=== PATIENT | female | born 1980 | race Caucasian/White ===

== ENCOUNTER → 2019-03-13 01:00 | Outpatient (BNVA) | payer MEDICARE, SELFPAY | PROVIDERS: Family Provider Nurse Practitioner Family; PCP Nurse Practitioner Family; Visit Provider Nurse Practitioner Family | DX: J40 Bronchitis, not specified as acute or chronic (principal); R35.0 Frequency of micturition; B37.3 Candidiasis of vulva and vagina; E66.01 Morbid (severe) obesity due to excess calories; Z68.43 Body mass index [BMI] 50.0-59.9, adult | CPT/HCPCS: 81001; 87086 ==

== ENCOUNTER → 2019-04-05 13:13 | Outpatient (BNVA) | payer MEDICARE, SELFPAY | PROVIDERS: Family Provider Nurse Practitioner Family; PCP Nurse Practitioner Family; Visit Provider Internal Medicine Rheumatology | DX: M35.9 Systemic involvement of connective tissue, unspecified (principal); E61.1 Iron deficiency; M15.9 Polyosteoarthritis, unspecified; Z79.899 Other long term (current) drug therapy | CPT/HCPCS: 99214 ==

== ENCOUNTER → 2019-05-10 11:06 | Outpatient (BNVA) | payer MEDICARE, SELFPAY | PROVIDERS: Family Provider Nurse Practitioner Family; PCP Nurse Practitioner Family; Visit Provider Nurse Practitioner Family | DX: K21.9 Gastro-esophageal reflux disease without esophagitis (principal) | CPT/HCPCS: 87338 ==

== ENCOUNTER → 2019-06-15 13:43 | Outpatient (BNVA) | payer MEDICARE, SELFPAY | PROVIDERS: Family Provider Nurse Practitioner Family; PCP Nurse Practitioner Family; Visit Provider Nurse Practitioner Family | DX: N39.0 Urinary tract infection, site not specified (principal); E11.9 Type 2 diabetes mellitus without complications; E03.9 Hypothyroidism, unspecified; N20.0 Calculus of kidney; E55.9 Vitamin D deficiency, unspecified; E78.2 Mixed hyperlipidemia; D64.9 Anemia, unspecified | CPT/HCPCS: 74018; 80053; 80061; 82306; 82607; 83036; 83540; 83921; 84443; 85025 ==

== ENCOUNTER → 2019-06-22 00:01 | Outpatient (BNVA) | payer MEDICARE, SELFPAY | PROVIDERS: Family Provider Nurse Practitioner Family; PCP Nurse Practitioner Family; Visit Provider Nurse Practitioner Family | DX: M35.9 Systemic involvement of connective tissue, unspecified (principal); E55.9 Vitamin D deficiency, unspecified; E78.2 Mixed hyperlipidemia; N39.0 Urinary tract infection, site not specified; M54.9 Dorsalgia, unspecified | CPT/HCPCS: 85651; G0328 ==

== ENCOUNTER → 2019-06-26 15:55 | Outpatient (BNVA) | payer MEDICARE, SELFPAY | PROVIDERS: Family Provider Nurse Practitioner Family; PCP Nurse Practitioner Family; Visit Provider Nurse Practitioner Family | DX: N39.0 Urinary tract infection, site not specified (principal); D64.9 Anemia, unspecified; D72.819 Decreased white blood cell count, unspecified | CPT/HCPCS: 81003; 82607; 82746; 85025 ==

== ENCOUNTER 2019-07-05 12:05 | Outpatient (CLI) | payer MEDICARE, SELFPAY ==
--- NOTE | 2019-07-05 12:16 | XR_ITS ---
WS: [id number] XR lumbar spine 2-3V* [id number] REASON FOR EXAM: lumbar pain radiating to right hip and leg FINDINGS: Degenerate disc changes L5-S1. The remaining lumbar spine showed normal vertebral body heights and the disc spaces were normal. There is 5 functional lumbar vertebra. XR/XR lumbar spine 2-3V* [id number] IMPRESSION: Degenerated disc changes L5-S1.
--- NOTE | 2019-07-05 12:16 | XR_ITS ---
WS: [id number] XR hip RT 2-3V wo/w pel* [id number] REASON FOR EXAM: right hip pain FINDINGS: Multiple views of the right hip show normal appearance of the acetabulum. There is no fractures of the head of the femur neck are intertrochanteric area. The left pelvis was normal as well as the right pelvis. XR/XR hip RT 2-3V wo/w pel* [id number] IMPRESSION: Negative right hip.
== END 2019-07-05 12:06 | disposition home or self-care (01) ==
LOC: RAD 12:09
PROVIDERS: Family Provider Nurse Practitioner Family; PCP Nurse Practitioner Family; Visit Provider Nurse Practitioner Family
DX: M54.5 Low back pain (principal); M25.551 Pain in right hip; N39.0 Urinary tract infection, site not specified
CPT/HCPCS: 72100; 73502; 80053; 81001

== ENCOUNTER → 2019-08-23 10:05 | Outpatient (BNVA) | payer MEDICARE, SELFPAY | PROVIDERS: Family Provider Nurse Practitioner Family; PCP Nurse Practitioner Family; Visit Provider Nurse Practitioner Family | DX: E03.9 Hypothyroidism, unspecified (principal); M32.9 Systemic lupus erythematosus, unspecified; L65.9 Nonscarring hair loss, unspecified | CPT/HCPCS: 36415; 82728; 83540; 84439; 84443; 84481; 85025 ==

== ENCOUNTER → 2019-09-13 11:27 | Outpatient (BNVA) | payer MEDICARE, SELFPAY | PROVIDERS: Family Provider Nurse Practitioner Family; PCP Nurse Practitioner Family; Visit Provider Internal Medicine Rheumatology | DX: E55.9 Vitamin D deficiency, unspecified (principal); M35.9 Systemic involvement of connective tissue, unspecified | CPT/HCPCS: 36415; 80053; 82306; 85651; 86140 ==

== ENCOUNTER → 2019-11-01 10:29 | Outpatient (BNVA) | payer MEDICARE, SELFPAY | PROVIDERS: Family Provider Nurse Practitioner Family; PCP Nurse Practitioner Family; Visit Provider Nurse Practitioner Family | DX: E03.9 Hypothyroidism, unspecified (principal); E55.9 Vitamin D deficiency, unspecified; E11.9 Type 2 diabetes mellitus without complications; D50.9 Iron deficiency anemia, unspecified; E78.2 Mixed hyperlipidemia | CPT/HCPCS: 80053; 80061; 81003; 82306; 82607; 83036; 83540; 84439; 84443; 84481; 85007; 85027; 86038 ==

== ENCOUNTER → 2019-11-10 11:52 | Outpatient (BNVA) | payer MEDICARE, SELFPAY | PROVIDERS: Family Provider Nurse Practitioner Family; PCP Nurse Practitioner Family; Visit Provider Nurse Practitioner Family | DX: E11.9 Type 2 diabetes mellitus without complications (principal); N39.0 Urinary tract infection, site not specified | CPT/HCPCS: 81003 ==

== ENCOUNTER → 2019-11-27 08:24 | Outpatient (BNVA) | payer MEDICARE, SELFPAY | PROVIDERS: Family Provider Nurse Practitioner Family; PCP Nurse Practitioner Family; Visit Provider Nurse Practitioner Family | DX: Z11.59 Encounter for screening for other viral diseases (principal) | CPT/HCPCS: 87635 ==

== ENCOUNTER 2020-01-09 11:18 | Outpatient (CLI) | payer MEDICARE, SELFPAY ==
--- NOTE | 2020-01-09 11:35 | XR_ITS ---
WS: [id number] Lumbar spine, 3 views, 01/09/2020 Clinical Data: CHRONIC BACK PAIN, DORSALGIA Comparison: Lumbar spine, 07/05/2019. Findings: No compression fractures or subluxation is seen. There is narrowing of the L5-S1 disc space.. The tra nsverse processes and SI joints are normal. Minimal anterior osteoarthritic spurring is seen involving the lumbar vertebral bodies. XR/XR lumbar spine 2-3V* [id number] Impression: 1. Mild osteoarthritis. 2. Minimal L5-S1 disc space narrowing.
--- NOTE | 2020-01-09 11:35 | XR_ITS ---
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 Findings: No compression fractures are seen. The disc heights are normal. There is osteoarthritic spurring of the T6-T10 thoracic vertebral bodies. The paravertebral regions a re unremarkable. XR/XR thoracic spine 2V 47720 Impression: Moderate osteoarthritis.
== END 2020-01-09 11:19 | disposition home or self-care (01) ==
PROVIDERS: PCP Nurse Practitioner Family; Visit Provider Internal Medicine Rheumatology
DX: G89.29 Other chronic pain (principal); M47.814 Spondylosis without myelopathy or radiculopathy, thoracic region; M47.816 Spondylosis without myelopathy or radiculopathy, lumbar region
CPT/HCPCS: 72070; 72100

== ENCOUNTER 2020-01-29 06:00 | Outpatient (RCR) | payer MEDICARE, SELFPAY | END 2020-01-29 23:59 | disposition home or self-care (01) | LOC: WPT 06:00 | PROVIDERS: PCP Nurse Practitioner Family; Referring Provider Internal Medicine Rheumatology; Visit Provider Internal Medicine Rheumatology | DX: M51.36 Other intervertebral disc degeneration, lumbar region (principal) | CPT/HCPCS: 97110; 97162 ==

== ENCOUNTER → 2020-03-04 14:16 | Outpatient (BNVA) | payer MEDICARE, SELFPAY | PROVIDERS: PCP Nurse Practitioner Family; Visit Provider Nurse Practitioner Family | DX: D50.9 Iron deficiency anemia, unspecified (principal); M32.9 Systemic lupus erythematosus, unspecified; E03.9 Hypothyroidism, unspecified; N92.0 Excessive and frequent menstruation with regular cycle; J01.40 Acute pansinusitis, unspecified; H60.90 Unspecified otitis externa, unspecified ear | CPT/HCPCS: 80053; 81003; 82607; 82728; 83550; 83735; 84425; 84443; 85025; 86038 ==

== ENCOUNTER 2020-04-18 02:14 | Emergency (ER) | payer MEDICARE, SELFPAY ==
[2020-04-18 02:19] VITALS: BP 111/73; PULSE 74; RESP 18; TEMP 36.4; O2SAT 100; BMI 37.0
--- NOTE | 2020-04-18 02:22 | CTR_ITS ---
PROCEDURE INFORMATION: Exam: CT Abdomen And Pelvis With Contrast Exam date and time: 04/18/2020 2:24 AM Age: 39 years old Clinical indication: Abdominal pain; Localized; Right upper quadrant (ruq); Prior surgery; Surgery type: Gastric sleeve. Appy. Tubal. ; Patient HX: Ruq pain; Additional info: Abd pain TECHNIQUE: Imaging protocol: Computed tomography of the abdomen and pelvis with contrast. Radiation optimization: All CT scans at this facility use at least one of these dose optimization techniques: automated exposure control; mA and/or kV adjustment per patient size (includes targeted exams where dose is matched to clinical indication); or iterative reconstruction. Contrast material: OMNI 300; Contrast volume: 95 ml; Contrast route: INTRAVENOUS (IV); COMPARISON: No relevant prior studies available. RADIATION DOSE METRICS: Total DLP (mGy-cm): 1599.2 FINDINGS: Lungs: The lung bases are clear. Mediastinal space: Very small hiatal hernia. Liver: Unremarkable. Gallbladder and bile ducts: No visible gallstones by CT. Ultrasound would be more sensitive for detecting gallstones, if clinically needed. The gallbladder appears upper normal in size. No pericholecystic inflammatory changes or fluid. No biliary tree dilation. Pancreas: Unremarkable. Spleen: Unremarkable. Adrenal glands: Unremarkable. Kidneys and ureters: Likely benign 12 mm cyst in the right kidney. No hydronephrosis of either kidney. No visible ureteral calculus. Stomach and bowel: Evidence for prior gastric surgery. There are no CT findings to strongly suggest diverticulitis. Appendix: Reportedly, there has been prior appendectomy. Intraperitoneal space: No free air, generalized ascites, or bowel distention. Vasculature: No evidence for abdominal aortic aneurysm. Lymph nodes: No retroperitoneal adenopathy. Urinary bladder: Unremarkable as visualized. Reproductive: The left ovary contains a 15 mm dominant follicle versus very small cyst. Significance uncertain/unlikely due to small size. Small amount of cul-de-sac fluid. Bones/joints: Moderate to severe degenerative disc changes at L5-S1. Soft tissues: No significant acute finding. CT/CT abdomen pelvis w con* [id number] IMPRESSION: 1. No free air or bowel distention. 2. Gallbladder appears upper normal in size. No visible gallstones by CT. 3. The left ovary contains a 15 mm dominant follicle versus very small cyst. Significance uncertain/unlikely due to small size. Small amount of cul-de-sac fluid. 4. Other findings discussed above. COMMENTS: Consistent with the [employer]'s Incidental Findings Committee white paper (J Am Flavio Radiol 2018): Any incidental renal lesion less than 1 cm or classified as too small to characterize, or any incidental cystic renal lesion characterized as simple-appearing, is likely benign. No follow-up imaging is recommended for these lesions per consensus recommendations based on imaging criteria. Radiation Dose CTDIVOL = (mGy): DLP = 1599.2 (mGy-cm)
--- NOTE | 2020-04-18 02:23 | ECG_ITS ---
[facility] Test Date: 2020-04-18 Pat Name: Sylvia Luong Department: Room: Gender: Female Retail Assistant Store Manager: : 1980 Requested By: Narinder Pena Order Number: [id number] Reading MD: KODY GUY Measurements Intervals [place] Rate: 66 P: -1 WA: 143 QRS: 34 QRSD: 97 T: 25 QT: 400 QTc: 420 Interpretive Statements SINUS RHYTHM No previous ECG available for comparison Electronically Signed On 04-18-2020 18:18:18 FRUIT HARVEST WORKER by KODY GUY [id number]
--- NOTE | 2020-04-18 02:24 | ED_ITS ---
HPI - Abdominal Pain General: Chief Complaint: Abdominal Pain Stated Complaint: abd pain Time Seen by Provider: 04/18/20 02:19 Source: patient and EMS Mode of arrival: EMS Limitations: no limitations History of Present Illness: HPI narrative: 39-year-old female has a history of chronic back pain and also had a gastric sleeve procedure done last year. She states she had eaten something today and started having severe abdominal pain that radiated up her chest. States she felt like she was going to vomit as well. Patient called EMS and states she was given fentanyl along with Zofran and she feels much improved currently. She states she still has pain but it is a 2 out of 10. She denies any chest pain. Denies any diarrhea. MD elicited complaint: abdominal pain Associated Symptoms: Reports nausea; Denies chills, dysuria and fever(s) Review of Systems Const: Denies: fever(s), chills, body aches or change in appetite Eyes: Denies: blurry vision or eye discomfort ENMT: Denies: throat pain or dental pain Card: Denies: chest pain Resp: Denies: dyspnea GI: Reports: abdominal pain and nausea : Denies: dysuria Musc: Denies: neck pain or back pain Skin/Breast: Denies: rash Neuro: Denies: headache(s) Psych: Denies: depression Jameson/Lymph: Denies: easy bruising All/Imm: Denies: urticaria PFSH ED PFSH: Medical History Anemia Depression with anxiety Diabetes Generalized osteoarthritis GERD (gastroesophageal reflux disease) H/O fracture of pelvis Hematoma of spleen without rupture of capsule without open wound into abdominal cavity Hypothyroidism Lupus Morbid obesity with BMI of 45.0-49.9, adult Morbid obesity with BMI of 50.0-59.9, adult ([facility])After thorough history physical examination and reviewing the chart Overall, I believe the patient would be a great candidate for bariatric surgery. Patient have doubled demonstration understanding of all the appropriate teaching including diet, exercise and NSAID use. The patient appears to be committed to the lifestyle changes acquired for bariatric surgery I have discussed with the patient the potential risks of the surgery, including wound infection, wound problems,bleeding, anastomotic leak,internal hernia, stricture, ulceration, abdominal hernia, DVT/PE,, pneumonia,dumping syndrome, vitamin and mineral deficiencies, gallbladder and kidney stones ,sepsis, multiorgan failure and even , and potential future surgical interventions. Also with the potential complications related to the bougie and the EGD in the form of perforation or injury to the esophagus, stomach and other viscera. Discussed with loss: 5% of total body weight prior to surgery An informed consent per chart to proceed with laparoscopic vertical gastric sleeve and esophagogastroduodenoscopy The patient understood and was aware of these complications. The patient verbalized understanding and agreed with the plan of care Patient received at least 60 minutes of counseling regarding nutritional guidelines specific for the bariatric surgery patient, we discussed in detail required diet and lifestyle changes that need to be made in order to be successful with weight loss after surgery. The patient has also been educated on multiple other options for weight loss which does not involve surgery, Also patient attended all seminars preoperatively, and All questions have been answered and all concerns have been addressed to patient's satisfaction. Will plan to send a standard preoperative blood work due to the patient's metabolic syndrome prior to bariatric surgery. In the form of CBC CMP complete lipid profile, vitamin D,B levels, coags, hemoglobin A1c, iron, folic acid level. 03/31/19 After further reviewing the case and looking into the patient's clinical progress and reviewing the chart and my clinic notes from before, and looking back to my note dated on 01/09/2019 I realized that I did mention to the patient and in fact I did encourage her to obtain a second opinion from another bariatric surgery program and the reasoning behind that that I do feel that the patient needs to anchor her decision making more as it was mentioned to me before by her spouse that he was interested for her to have a lap adjustable gastric band which is preferred over the sleeve from his perspective and thus I do feel for the patient's utmost benefit, to seek a second opinion with regard to her future planning for bariatric surgery. We will continue coordinating with Ms. Figueroa patient's best care and with emphasis on holding off any intervention from my end, I will have my office staff to reach out to the patient in for and inform her about my professional opinion at this point. Otitis externa Recurrent UTI Severe sleep apnea Sinusitis Type 2 diabetes mellitus Patient has elevated A1C and home glucose levels. She could not tolerate Metformin. She denies any family history or personal history of medullary thyroid cancer. 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 Reproductive History: Spontaneous abortions: No Physical Exam Const: COMMON NORMALS: no acute distress, patient oriented x3 and healthy appearing HENMT: COMMON NORMALS: normocephalic and atraumatic HEAD & SCALP: normocephalic and atraumatic Eye: COMMON NORMALS: Equal, round and reactive pupils present and EOMs intact bilaterally PUPIL: Yes Equal, round and reactive pupils present Neck/C-Spine: COMMON NORMALS: full ROM and supple Chest: COMMONS NORMALS: normal inspection of the chest and normal palpation of entire chest wall Resp: COMMON NORMALS: normal respiratory effort, No retractions, No use of accessory muscles and clear to auscultation bilaterally AUSCULTATION: clear to auscultation bilaterally Cardio: COMMON NORMALS: regular rate, regular rhythm and No murmurs present (Cardio) RATE: regular rate RHYTHM: regular rhythm GI: COMMON NORMALS: Normal to inspection, nondistended, normoactive bowel sounds present, Soft to palpation and no masses PALPATION: Yes Soft to palpation and Yes Tenderness to palpation present (GI) (epigastric tenderness) Extremity: COMMON NORMALS: normal to inspection and full ROM Neuro: COMMON NORMALS: patient oriented x3, moves all extremities and no focal motor deficits Psych: COMMON NORMALS: mental status grossly normal, Normal thought process present and cooperative THOUGHT PROCESS: Normal thought process present Skin: COMMON NORMALS: no rashes or lesions noted and no wounds GENERAL SKIN EXAM: no rashes or lesions noted Course Vital Signs: Vital signs: Vital Signs Temperature 97.5 F L 04/18/20 02:19 Pulse Rate 75 04/18/20 04:30 Respiratory Rate 16 04/18/20 04:30 Blood Pressure 109/76 04/18/20 04:30 Pulse Oximetry 99 04/18/20 04:30 MDM - Abdominal Pain MDM Narrative: Medical decision making narrative: Patient presents with right upper quadrant and epigastric pain. Ultrasound did show cholelithiasis. Patient has no signs of cholecystitis. Patient's pain is much improved here and exam is benign. We will get her follow-up with a surgeon. She is stable for discharge and return if worsening. Patient understands agrees to plan. Lab Data: Labs: Lab Results 04/18/20 04/18/20 04/18/20 Range/Units 00:50 00:50 02:47 WBC 13.8 H (4.0-10.0) 10^3/ uL RBC 5.28 (4.1-5.3) 10^6/u L Hgb 14.4 (11.5-15.3) g/dL Hct 44.2 (37.0-47.0) % MCV 83.7 (81-99) fL MCH 27.3 L (28.0-34.0) pg MCHC 32.6 (30.0-36.0) g/dL RDW 13.4 (12.1-15.1) % Plt Count 261 (130-400) 10^3/c mm MPV 11.8 H (7.4-10.4) fL Neut % (Auto) 86.5 % Lymph % (Auto) 8.1 % [place] % (Auto) 4.1 % Eos % (Auto) 0.5 % Baso % (Auto) 0.4 % Neut # (Auto) 11.96 H (1.8-7.7) 10^3/u L Lymph # (Auto) 1.1 (0.8-4.8) 10^3/u L [place] # (Auto) 0.6 (0.2-0.9) 10^3/u L Eos # (Auto) 0.1 (0.0-0.8) 10^3/u L Baso # (Auto) 0.1 (0.0-0.1) 10^3/u L Nucleated RBC % (a uto) 0 % Nucleated RBCs # 0.0 /100WBC Sodium 138 (136-145) mmol/L Potassium 3.8 (3.5-5.1) mmol/L Chloride 103 (98-107) mmol/L Carbon Dioxide 24 (22-29) mmol/L Anion Gap 14.8 (5-19) BUN 17 (6-20) mg/dL Creatinine 0.6 (0.5-0.9) mg/dL GFR Calculation 110.7 (90-130) mL/min Glucose 133 H (65-115) mg/dL Calculated Osmolal ity 289 (285-295) mOsm/k g Calcium 8.9 (8.5-10.5) mg/dL Total Bilirubin 1.0 (0.15-1.2) mg/dL AST 80 H (0-32) U/L ALT 34 H (0-33) U/L Alkaline Phosphata se 108 H (35-105) IU/L Total Protein 7.6 (6.6-8.7) g/dL Albumin 4.1 (3.5-5.2) g/dL Globulin 3.5 (1.3-4.6) g/dL Lipase 38 (13-60) U/L Urine Color Dark yellow (Yellow) Urine Appearance Sl hazy (CLEAR) Urine pH 5 (5-7) Ur Specific Gravit y 1.020 (1.005-1.030) Urine Protein Neg (Negative) Urine Glucose (UA) Norm (Normal) Urine Ketones 1+ H (Negative) Urine Blood Neg (Negative) Urine Nitrate Negative (Negative) Urine Bilirubin 1+ H (Negative) Urine Urobilinogen 4 H (Negative) mg/dL Ur Leukocyte Dana ase Negative (Negative) Urine RBC None (0-2) /hpf Urine WBC Rare (0-5) /hpf Ur Squamous Epith Cells 5-10 H (0-5) /hpf Calcium Oxalate Cr ystal 5-10 H /hpf Amorphous Sediment Not Reportable Urine Bacteria 1+ H (NONE) /hpf Urine Mucus 2+ /hpf Imaging Data ^: CT Abd/Pel: Attestation: I personally reviewed and interpreted this imaging study as follows: Radiologist's impression: [address] [address] [address] Scan Report Signed Patient: Sylvia Luong Unit #: [id number] : 1980 Age/Sex: 39 / F ADM Date: 04/18/20 Loc: ER Room/Bed: Attending Dr: Ordering Provider/Ordering MD: Narinder Pena MD Date of Service: 04/18/20 Procedure(s): CT abdomen pelvis w con* [id number] Accession Number(s): [id number] Report Number: [id number] PROCEDURE INFORMATION: Exam: CT Abdomen And Pelvis With Contrast Exam date and time: 04/18/2020 2:24 AM Age: 39 years old Clinical indication: Abdominal pain; Localized; Right upper quadrant (ruq); Prior surgery; Surgery type: Gastric sleeve. Appy. Tubal. ; Patient HX: Ruq pain; Additional info: Abd pain TECHNIQUE: Imaging protocol: Computed tomography of the abdomen and pelvis with contrast. Radiation optimization: All CT scans at this facility use at least one of these dose optimization techniques: automated exposure control; mA and/or kV adjustment per patient size (includes targeted exams where dose is matched to clinical indication); or iterative reconstruction. Contrast material: OMNI 300; Contrast volume: 95 ml; Contrast route: INTRAVENOUS (IV); COMPARISON: No relevant prior studies available. RADIATION DOSE METRICS: Total DLP (mGy-cm): 1599.2 FINDINGS: Lungs: The lung bases are clear. Mediastinal space: Very small hiatal hernia. Liver: Unremarkable. Gallbladder and bile ducts: No visible gallstones by CT. Ultrasound would be more sensitive for detecting gallstones, if clinically needed. The gallbladder appears upper normal in size. No pericholecystic inflammatory changes or fluid. No biliary tree dilation. Pancreas: Unremarkable. Spleen: Unremarkable. Adrenal glands: Unremarkable. Kidneys and ureters: Likely benign 12 mm cyst in the right kidney. No hydronephrosis of either kidney. No visible ureteral calculus. Stomach and bowel: Evidence for prior gastric surgery. There are no CT findings to strongly suggest diverticulitis. Appendix: Reportedly, there has been prior appendectomy. Intraperitoneal space: No free air, generalized ascites, or bowel distention. Vasculature: No evidence for abdominal aortic aneurysm. Lymph nodes: No retroperitoneal adenopathy. Urinary bladder: Unremarkable as visualized. Reproductive: The left ovary contains a 15 mm dominant follicle versus very small cyst. Significance uncertain/unlikely due to small size. Small amount of cul-de-sac fluid. Bones/joints: Moderate to severe degenerative disc changes at L5-S1. Soft tissues: No significant acute finding. CT/CT abdomen pelvis w con* [id number] IMPRESSION: 1. No free air or bowel distention. 2. Gallbladder appears upper normal in size. No visible gallstones by CT. 3. The left ovary contains a 15 mm dominant follicle versus very small cyst. Significance uncertain/unlikely due to small size. Small amount of cul-de-sac fluid. 4. Other findings discussed above. EKG Data ^: EKG 1: Attestation: I personally reviewed and interpreted this EKG as follows: EKG interpretation date: 04/18/20 EKG interpretation time: 02:59 Interpretation: nsr hr [address] or t wave abnormalities qrs 97 qtc 413 Discharge Plan Discharge Patient Disposition: Home Clinical Impression: Abdominal pain Condition: Stable Prescriptions: [place] 5-325 mg tablet 1 tab PO Q6H PRN (Reason: pain) Qty: 14 RF: 0 ondansetron 4 mg tablet,disintegrating 4 mg PO Q6H PRN (Reason: nausea and vomiting) Qty: 14 RF: 0 No Action escitalopram oxalate 20 mg tablet 20 mg PO DAILY Qty: 30 RF: 2 rosuvastatin [Crestor] 5 mg tablet 5 mg PO DAILY 30 Days Qty: 30 RF: 2 cholecalciferol (vitamin D3) 1,250 mcg (50,000 unit) capsule 50,000 unit PO .WEEKLY 90 Days Qty: 14 RF: 1 doxycycline hyclate 100 mg tablet 100 mg PO BID Qty: 20 RF: 0 fwqkzmdr-vkdrfbweg-NL 3.5-10,000-1 mg/mL-unit/mL-% solution 4 drp otic (ear) Q8H Qty: 10 RF: 0 ferrous sulfate 325 mg (65 mg iron) tablet,delayed release (DR/EC) 325 mg PO DAILY 30 Days Qty: 30 RF: 2 pseudoephedrine HCl 60 mg tablet 60 mg PO Q6H PRN (Reason: nasal congestion) 30 Days Qty: 30 RF: 0 levothyroxine 100 mcg tablet See Rx Instructions .ROUTE .COMPLEX Qty: 90 RF: 1 Discharge Orders: Discharge ED (Routine); Ordered 04/18/20 Ordered By: Narinder Pena Referrals: MAYO Figueroa, AIR CONDITIONING SPECIALIST [Primary Care Provider] - 1-3 days Discharge Diet: Advance as tolerated Discharge Activity: Resume usual activity Patient Instructions: Abdominal Pain (ED), Opioid Safety Coding Level of Care Code ED Industrial Safety And Health Technician for Chg Fwd Exam Comprehensive
[2020-04-18] MEDS: iohexol 300 mg/mL 100 mL Btl IV (02:36)
[2020-04-18] MEDS: sodium chloride 0.9% 1,000 ML 999 ML IV (02:51)
[2020-04-18 03:03] VITALS: BP 107/63; PULSE 63; O2SAT 99
[2020-04-18 03:14] LABS: Basophils # 0.1 10^3/uL (0.0-0.1); Basophils % 0.4 %; Eosinophils # 0.1 10^3/uL (0.0-0.8); Eosinophils % 0.5 %; Hematocrit 44.2 % (37.0-47.0); Hemoglobin 14.4 g/dL (11.5-15.3); Lymphocytes # 1.1 10^3/uL (0.8-4.8); Lymphocytes % 8.1 %; Mean Corpuscular HGB Conc 32.6 g/dL (30.0-36.0); Mean Corpuscular Hemoglobin 27.3 pg (28.0-34.0); Mean Corpuscular Volume 83.7 fL (81-99); Mean Platelet Volume 11.8 fL (7.4-10.4); Monocytes # 0.6 10^3/uL (0.2-0.9); Monocytes % 4.1 %; Neutrophils # 11.96 10^3/uL (1.8-7.7); Neutrophils % 86.5 %; Nucleated Red Blood Cells % 0 %; Platelet Count 261 10^3/cmm (130-400); Red Blood Count 5.28 10^6/uL (4.1-5.3); Red Cell Distribution Width 13.4 % (12.1-15.1); White Blood Count 13.8 10^3/uL (4.0-10.0)
[2020-04-18 03:16] LABS: Alanine Aminotransferase 34 U/L (0-33); Albumin Level 4.1 g/dL (3.5-5.2); Alkaline Phosphatase 108 IU/L (35-105); Anion Gap 14.8 (5-19); Aspartate Amino Transferase 80 U/L (0-32); Blood Urea Nitrogen 17 mg/dL (6-20); Calcium 8.9 mg/dL (8.5-10.5); Carbon Dioxide 24 mmol/L (22-29); Chloride 103 mmol/L (98-107); Globulin 3.5 g/dL (1.3-4.6); Glomerular Filtration Rate 110.7 mL/min (90-130); Glucose 133 mg/dL (65-115); Lipase 38 U/L (13-60); Osmolality Calculated 289 mOsm/kg (285-295); Potassium 3.8 mmol/L (3.5-5.1); Sodium 138 mmol/L (136-145); Total Protein 7.6 g/dL (6.6-8.7)
[2020-04-18 03:20] LABS: Add Urine Microscopic? YES; Bilirubin Urine 1+ (Negative); Blood Urine Neg (Negative); Glucose Urine UA Norm (Normal); Ketones Urine 1+ (Negative); Leukocyte Esterase Urine Negative (Negative); Nitrate Urine Negative (Negative); Protein Urine Neg (Negative); Urine Appearance SL Hazy (CLEAR); Urine Color Dark Yellow (Yellow); Urobilinogen Urine 4 mg/dL (Negative); pH Urine 5 (5-7)
[2020-04-18 03:22] LABS: Add Urine Culture? No; Bacteria Urine 1+ /hpf; Mucus Urine 2+ /hpf; WBC Urine RARE /hpf (0-5)
[2020-04-18 03:30] VITALS: BP 108/75; PULSE 68; O2SAT 100
[2020-04-18] MEDS: ondansetron 2 mg/ML SDV 2 mL 4 MG IVP (03:41)
[2020-04-18 03:44] VITALS: RESP 16; O2SAT 100
[2020-04-18] MEDS: HYDROmorphone 1 mg/mL INJ 1 mL IVP (03:44)
--- NOTE | 2020-04-18 03:50 | US_ITS ---
WS: [id number] RIGHT UPPER QUADRANT ULTRASOUND HISTORY: Abdominal pain. COMPARISON: 12/15/2018 Liver: 16.5 cm in length. Mild coarsened echotexture and hepatic steatosis. Normal portal vein. Gallbladder: Normally distended gallbladder. Nonshadowing stones or sludge is present in the gallblad eboni. These were not identified on the prior study. Quality examination is limited by body habitus. No wall thickening or pericholecystic fluid. CBD: 0.4 cm Pancreas: Tail is not visualized. Remaining pancreas is negative. Right kidney: 11.3 cm in length. Normal size and echogenicity. No hydronephrosis or mass. Aorta and IVC: Unremarkable abdominal aorta and IVC. No ascites. US/US gall bladder [id number] IMPRESSION: 1. Stones or sludge layering the gallbladder. There is no shadowing. These fin dings were not identified on the prior study. Quality of examination is limited by body habitus. 2. Hepatic steatosis.
[2020-04-18 04:00] VITALS: BP 113/74; PULSE 63; O2SAT 100
[2020-04-18 04:30] VITALS: BP 109/76; PULSE 75; RESP 16; O2SAT 99
--- NOTE | 2020-04-19 11:43 | DCPLANNER ---
racing manager had message to schedule a follow up appointment for patient with Dr. Hobbs. racing manager faxed patients information to the office of Dr. Hobbs, will call for appointment information.
--- NOTE | 2020-05-15 14:46 | DCPLANNER ---
insulation manager called the office of to confirm if a follow up appointment had been scheduled for patient. insulation manager spoke with Juany, was told that clinic has tried to call patient several times to schedule a follow up appointment, patient has not returned any phone calls to the clinic. insulation manager was unable to reach patient.
== END 2020-04-18 04:46 | disposition home or self-care (01) ==
PROVIDERS: Emergency Provider Emergency Medicine; PCP Nurse Practitioner Family
DX: R10.9 Unspecified abdominal pain (principal); E11.9 Type 2 diabetes mellitus without complications
CPT/HCPCS: 74177; 76705; 80053; 81001; 83690; 85025; 93005; 96361; 96374; 96375; 99283; J1170; J2405; J7030; Q9967

== ENCOUNTER → 2020-07-23 10:40 | Outpatient (BNVA) | payer MEDICARE, SELFPAY | PROVIDERS: PCP Nurse Practitioner Family; Visit Provider Nurse Practitioner Family | DX: R30.0 Dysuria (principal); E11.9 Type 2 diabetes mellitus without complications; E55.9 Vitamin D deficiency, unspecified; E78.2 Mixed hyperlipidemia; E03.9 Hypothyroidism, unspecified; F41.9 Anxiety disorder, unspecified; F32.9 Major depressive disorder, single episode, unspecified | CPT/HCPCS: 80053; 80061; 81003; 82306; 83036; 84439; 84443; 84481; 85025 ==

== ENCOUNTER → 2020-12-27 16:13 | Outpatient (BNVA) | payer MEDICARE, SELFPAY | PROVIDERS: PCP Nurse Practitioner Family; Visit Provider Nurse Practitioner Family | DX: M25.562 Pain in left knee (principal); M17.12 Unilateral primary osteoarthritis, left knee | CPT/HCPCS: 73562 ==

== ENCOUNTER → 2021-02-14 16:15 | Outpatient (BNVA) | payer MEDICARE, SELFPAY | PROVIDERS: PCP Nurse Practitioner Family; Visit Provider Nurse Practitioner Family | DX: M25.531 Pain in right wrist (principal) | CPT/HCPCS: 73110 ==

== ENCOUNTER → 2021-09-09 08:35 | Outpatient (BNVA) | payer MEDICARE, SELFPAY | PROVIDERS: PCP Nurse Practitioner Family; Visit Provider Nurse Practitioner | DX: N39.0 Urinary tract infection, site not specified (principal); Z20.2 Contact with and (suspected) exposure to infections with a predominantly sexual mode of transmission; Z79.899 Other long term (current) drug therapy; F41.9 Anxiety disorder, unspecified; F32.9 Major depressive disorder, single episode, unspecified | CPT/HCPCS: 80053; 81000; 82306; 82746; 85025; 86038; 87077; 87086; 87184; 87491; 87591; 87661 ==

== ENCOUNTER → 2021-09-29 09:01 | Outpatient (BNVA) | payer MEDICARE, SELFPAY | PROVIDERS: PCP Nurse Practitioner Family; Visit Provider Nurse Practitioner | DX: M17.11 Unilateral primary osteoarthritis, right knee (principal); M25.561 Pain in right knee | CPT/HCPCS: 73562 ==

== ENCOUNTER → 2021-11-13 10:31 | Outpatient (BNVA) | payer MEDICARE, SELFPAY | PROVIDERS: PCP Nurse Practitioner Family; Visit Provider Podiatrist Foot & Ankle Surgery | DX: M72.2 Plantar fascial fibromatosis (principal); E11.9 Type 2 diabetes mellitus without complications | CPT/HCPCS: 73620; 73630; 99204; J1100; J3301 ==

== ENCOUNTER 2021-12-06 14:09 | Emergency (ER) | payer MEDICARE, SELFPAY ==
[2021-12-06 14:33] VITALS: BP 110/70; PULSE 89; RESP 18; TEMP 36.5; O2SAT 99; BMI 36.3
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
[2021-12-06] MEDS: ketorolac 60 mg/2 mL INJ IM (15:46)
== END 2021-12-06 16:19 | disposition home or self-care (01) ==
PROVIDERS: Emergency Provider Physician Assistant; PCP Nurse Practitioner
DX: S70.12XA Contusion of left thigh, initial encounter (principal); E11.9 Type 2 diabetes mellitus without complications; V89.2XXA Person injured in unspecified motor-vehicle accident, traffic, initial encounter
CPT/HCPCS: 73552; 96372; 99284; J1885

== ENCOUNTER → 2021-12-23 15:31 | Outpatient (BNVA) | payer MEDICARE, SELFPAY | PROVIDERS: PCP Nurse Practitioner; Visit Provider Podiatrist Foot & Ankle Surgery | DX: M72.2 Plantar fascial fibromatosis (principal); B35.1 Tinea unguium | CPT/HCPCS: 99213 ==

== ENCOUNTER → 2022-03-24 11:07 | Outpatient (BNVA) | payer MEDICARE, SELFPAY | PROVIDERS: PCP Nurse Practitioner; Visit Provider Nurse Practitioner | DX: R30.0 Dysuria (principal) | CPT/HCPCS: 81000 ==

== ENCOUNTER → 2022-04-21 14:19 | Outpatient (BNVA) | payer MEDICARE, SELFPAY | PROVIDERS: PCP Nurse Practitioner; Visit Provider Nurse Practitioner | DX: E55.9 Vitamin D deficiency, unspecified (principal); E03.9 Hypothyroidism, unspecified | CPT/HCPCS: 82306; 84443 ==

== ENCOUNTER → 2022-05-19 14:19 | Outpatient (BNVA) | payer MEDICARE, SELFPAY | PROVIDERS: PCP Nurse Practitioner; Visit Provider Nurse Practitioner Women's Health | DX: Z01.419 Encounter for gynecological examination (general) (routine) without abnormal findings (principal); N39.0 Urinary tract infection, site not specified; N76.0 Acute vaginitis; B96.89 Other specified bacterial agents as the cause of diseases classified elsewhere; B37.31 Acute candidiasis of vulva and vagina | CPT/HCPCS: 84315; 86695; 86696; 87529; 87624 ==

== ENCOUNTER → 2022-06-02 12:20 | Outpatient (BNVA) | payer MEDICARE, SELFPAY | PROVIDERS: PCP Nurse Practitioner; Visit Provider Nurse Practitioner Women's Health | DX: N92.0 Excessive and frequent menstruation with regular cycle (principal) | CPT/HCPCS: 76830 ==

== ENCOUNTER 2022-06-25 12:06 | Day surgery (SDC) | payer MEDICARE, SELFPAY ==
[2022-06-24 12:07] VITALS: BMI 35.6
[2022-06-25] VITALS (11 sets, daily range): BP systolic 104–125; BP diastolic 64–83; PULSE 58–71; RESP 16–20; TEMP 36.1–36.6; O2SAT 97–100
--- NOTE | 2022-06-25 09:40 | P.HP_ITS ---
Same Day Surgery H&P Indication for Procedure/HPI DATE OF PROCEDURE: June 25, 2022 CHIEF COMPLAINT/INDICATIONFOR SURGICAL PROCEDURE: 41 y.o. with abnormal uterine bleeding, menometrorrhagia PREOP DIAGNOSIS: abnormal uterine bleeding PLANNED PROCEDURE: Operation Date: 06/25/22 13:45 Proposed Procedures p Hysteroscopy with Myosure, endometrial sampling 99620, possible endometrial polypectomy 81439,N93.9(Not Applicable) - Matt Sanders MD s Poylpectomy(Not Applicable) - Matt Sanders MD Medications/Allergies* Home Medications Medication Instructions Recorded Confirmed Type escitalopram oxalate 5 mg tablet 10 mg PO 1XD 06/24/22 06/24/22 History Allergies/Adverse Reactions Allergy/AdvReac Type Severity Reaction Status Date / Time Penicillins Allergy ALGY-Rash Verified 06/10/22 12:56 Pertinent History/Comorbid Conditions* Medical History (Updated 06/03/22 @ 17:07 by Elayne Mancia NP) Abrasion, left knee, initial encounter Anemia Anxiety and depression Bilateral otitis media Bronchitis Patient has onset of sinusitis, cough with sputum production and congestion. Depression with anxiety Diabetes Generalized osteoarthritis GERD (gastroesophageal reflux disease) H/O deep venous thrombosis H/O fracture of pelvis Hematoma of spleen without rupture of capsule without open wound into abdominal cavity History of deep venous thrombosis (DVT) of distal vein of left lower extremity Hypothyroidism Insomnia Left elbow pain Left foot pain Lupus Medication monitoring encounter Morbid obesity with BMI of 45.0-49.9, adult Morbid obesity with BMI of 50.0-59.9, adult ([facility] [place] [facility])After thorough history physical examination and reviewing the chart Overall, I believe the patient would be a great candidate for bariatric surgery. Patient have doubled demonstration understanding of all the appropriate teaching including diet, exercise and NSAID use. The patient appears to be committed to the lifestyle changes acquired for bariatric surgery I have discussed with the patient the potential risks of the surgery, including wound infection, wound problems,bleeding, anastomotic leak,internal hernia, stricture, ulceration, abdominal hernia, DVT/PE,, pneumonia,dumping syndrome, vitamin and mineral deficiencies, gallbladder and kidney stones ,sepsis, multiorgan failure and even , and potential future surgical interventions. Also with the potential complications related to the bougie and the EGD in the form of perforation or injury to the esophagus, stomach and other viscera. Discussed with loss: 5% of total body weight prior to surgery An informed consent per chart to proceed with laparoscopic vertical gastric sleeve and esophagogastroduodenoscopy The patient understood and was aware of these complications. The patient verbalized understanding and agreed with the plan of care Patient received at least 60 minutes of counseling regarding nutritional guidelines specific for the bariatric surgery patient, we discussed in detail required diet and lifestyle changes that need to be made in order to be successful with weight loss after surgery. The patient has also been educated on multiple other options for weight loss which does not involve surgery, Also patient attended all seminars preoperatively, and All questions have been answered and all concerns have been addressed to patient's satisfaction. Will plan to send a standard preoperative blood work due to the patient's metabolic syndrome prior to bariatric surgery. In the form of CBC CMP complete lipid profile, vitamin D,B levels, coags, hemoglobin A1c, iron, folic acid level. 03/31/19 After further reviewing the case and looking into the patient's clinical progress and reviewing the chart and my clinic notes from before, and looking back to my note dated on 01/09/2019 I realized that I did mention to the patient and in fact I did encourage her to obtain a second opinion from another bariatric surgery program and the reasoning behind that that I do feel that the patient needs to anchor her decision making more as it was mentioned to me before by her spouse that he was interested for her to have a lap adjustable gastric band which is preferred over the sleeve from his perspective and thus I do feel for the patient's utmost benefit, to seek a second opinion with regard to her future planning for bariatric surgery. We will continue coordinating with Ms. Figueroa patient's best care and with emphasis on holding off any intervention from my end, I will have my office staff to reach out to the patient in for and inform her about my professional opinion at this point. Osteoarthritis Otitis externa Plantar fasciitis of left foot Primary insomnia Recurrent UTI Sensation of foreign body in throat Severe sleep apnea Sinusitis Traumatic ecchymosis of left lower leg Type 2 diabetes mellitus Patient has elevated A1C and home glucose levels. She could not tolerate Metformin. She denies any family history or personal history of medullary thyroid cancer. Undifferentiated connective tissue disease Vaginal yeast infection Vitamin D deficiency Yeast dermatitis Surgical History (Updated 03/13/19 @ 10:30 by BLANCA Su) History of appendectomy (~2008) History of (~2004) History of carpal tunnel repair (~2003) History of rotator cuff surgery History of tubal ligation (~2009) Family History (Updated 03/02/19 @ 13:53 by Chelsey Mora RN) Diabetes Father Cancer Father colon Hypertension Mother Thyroid disease Mother Stroke Mother Social History Smoking and tobacco status: never smoked Second hand smoke exposure: No Alcohol intake: never Desire information about alcohol rehabilitation?: No Counseling given: No 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
[2022-06-25 12:24] LABS: OR HCG Qualitative Urine Negative (Negative)
--- NOTE | 2022-06-25 12:45 | W.PM.OPSUD ---
Surgery/Procedure H&P Update DATE OF PROCEDURE: June 25, 2022 DATE H&P PERFORMED: 06/25/22 PREOP DIAGNOSIS: abnormal uterine bleeding PLANNED PROCEDURE: Operation Date: 06/25/22 13:45 Proposed Procedures p Hysteroscopy with Myosure, endometrial sampling 83722, possible endometrial polypectomy 53858,N93.9(Not Applicable) - Matt Sanders MD s Poylpectomy(Not Applicable) - Matt Sanders MD
[2022-06-25] MEDS: sodium chloride 0.9% 1,000 ML 30 ML IV (12:47)
[2022-06-25] MEDS: scopolamine 1.5 Patch 1 PATCH TRANSDERMA (12:47)
[2022-06-25] MEDS: midazolam 1 mg/mL INJ 2 mL 2 MG IVP (12:48)
--- NOTE | 2022-06-25 13:57 | ANES.PREANE2 ---
Pre-Anesthetic Assessment Height/Weight: Height 1.63 m Weight 94.347 kg Temp Pulse Resp BP Pulse Ox O2 Del Method 97.8 F 67 18 120/64 98 Room Air 06/25/22 12:26 06/25/22 12:26 06/25/22 12:26 06/25/22 12:26 06/25/22 12:06/25/22 12:26 Preop Diagnosis: abnormal uterine bleeding Operation Date: 06/25/22 13:45 Proposed Procedures p Hysteroscopy with Myosure, endometrial sampling 11940, possible endometrial polypectomy 14910,N93.9(Not Applicable) - Matt Sanders MD s Poylpectomy(Not Applicable) - Matt Sanders MD Familial anesthetic complications: none Was Beta Jus taken within 24 hours: N/A Was Clonidine taken within 24 hours: N/A Last intake: Intake Last Liquid Date 06/25/22 Last Liquid Time 08:00 Last Solid Date 06/24/22 Last Solid Time 23:30 Social No alcohol and No tobacco Pulmonary Sleep Apnea CV/HEM Deep Vein Thrombosis GI Gastroesophageal Reflux Disease Metabolic Diabetes Mellitus, Morbid Obesity and Thyroid Disease Neuropsych Anxiety and Depression Anesthetic Plan ASA status: 3 Anesthesia: General Medications/Allergies Home Medications Medication Instructions Recorded Confirmed Last Taken Type alprazolam 0.25 mg tablet 0.125 mg PO BID PRN anxiety 30 06/10/22 06/24/22 06/25/22 Rx days #30 tabs cholecalciferol (vitamin D3) 1,250 50,000 unit PO .WEEKLY 90 days #14 06/15/22 06/25/22 Unknown Rx mcg (50,000 unit) capsule caps escitalopram oxalate 5 mg tablet 10 mg PO 1XD 06/24/22 06/24/22 05/27/22 History levothyroxine 100 mcg tablet 100 mcg PO DAILY 06/25/22 06/25/22 06/18/22 History Allergies Allergy/AdvReac Type Severity Reaction Status Date / Time Penicillins Allergy ALGY-Rash Verified 06/10/22 12:56 Current Medications Generic Name Dose Route Start Last Admin Trade Name Freq PRN Reason Stop Dose Admin Sodium Chloride 1,000 mls @ 30 mls/hr 06/25/22 12:30 06/25/22 12:47 Sodium Chloride 0.9% IV 06/26/22 12:29 30 mls/hr .Q24H TIERA Administration Midazolam HCl 2 mg 06/25/22 12:26 06/25/22 12:48 Midazolam 1 Mg/Ml Inj 2 Ml IVP 2 mg Q5M PRN Administration Preop Anxiety PFSH Anesthesia Medical History Abrasion, left knee, initial encounter Anemia Anxiety and depression Bilateral otitis media Bronchitis Patient has onset of sinusitis, cough with sputum production and congestion. Depression with anxiety Diabetes Generalized osteoarthritis GERD (gastroesophageal reflux disease) H/O deep venous thrombosis H/O fracture of pelvis Hematoma of spleen without rupture of capsule without open wound into abdominal cavity History of deep venous thrombosis (DVT) of distal vein of left lower extremity Hypothyroidism Insomnia Left elbow pain Left foot pain Lupus Medication monitoring encounter Morbid obesity with BMI of 45.0-49.9, adult Morbid obesity with BMI of 50.0-59.9, adult ([facility])After thorough history physical examination and reviewing the chart Overall, I believe the patient would be a great candidate for bariatric surgery. Patient have doubled demonstration understanding of all the appropriate teaching including diet, exercise and NSAID use. The patient appears to be committed to the lifestyle changes acquired for bariatric surgery I have discussed with the patient the potential risks of the surgery, including wound infection, wound problems,bleeding, anastomotic leak,internal hernia, stricture, ulceration, abdominal hernia, DVT/PE,, pneumonia,dumping syndrome, vitamin and mineral deficiencies, gallbladder and kidney stones ,sepsis, multiorgan failure and even , and potential future surgical interventions. Also with the potential complications related to the bougie and the EGD in the form of perforation or injury to the esophagus, stomach and other viscera. Discussed with loss: 5% of total body weight prior to surgery An informed consent per chart to proceed with laparoscopic vertical gastric sleeve and esophagogastroduodenoscopy The patient understood and was aware of these complications. The patient verbalized understanding and agreed with the plan of care Patient received at least 60 minutes of counseling regarding nutritional guidelines specific for the bariatric surgery patient, we discussed in detail required diet and lifestyle changes that need to be made in order to be successful with weight loss after surgery. The patient has also been educated on multiple other options for weight loss which does not involve surgery, Also patient attended all seminars preoperatively, and All questions have been answered and all concerns have been addressed to patient's satisfaction. Will plan to send a standard preoperative blood work due to the patient's metabolic syndrome prior to bariatric surgery. In the form of CBC CMP complete lipid profile, vitamin D,B levels, coags, hemoglobin A1c, iron, folic acid level. 03/31/19 After further reviewing the case and looking into the patient's clinical progress and reviewing the chart and my clinic notes from before, and looking back to my note dated on 01/09/2019 I realized that I did mention to the patient and in fact I did encourage her to obtain a second opinion from another bariatric surgery program and the reasoning behind that that I do feel that the patient needs to anchor her decision making more as it was mentioned to me before by her spouse that he was interested for her to have a lap adjustable gastric band which is preferred over the sleeve from his perspective and thus I do feel for the patient's utmost benefit, to seek a second opinion with regard to her future planning for bariatric surgery. We will continue coordinating with Ms. Figueroa patient's best care and with emphasis on holding off any intervention from my end, I will have my office staff to reach out to the patient in for and inform her about my professional opinion at this point. Osteoarthritis Otitis externa Plantar fasciitis of left foot Primary insomnia Recurrent UTI Sensation of foreign body in throat Severe sleep apnea Sinusitis Traumatic ecchymosis of left lower leg Type 2 diabetes mellitus Patient has elevated A1C and home glucose levels. She could not tolerate Metformin. She denies any family history or personal history of medullary thyroid cancer. Undifferentiated connective tissue disease Vaginal yeast infection Vitamin D deficiency Yeast dermatitis Surgical History History of appendectomy (~2008) History of (~2004) History of carpal tunnel repair (~2003) History of rotator cuff surgery History of tubal ligation (~2009) Family History Father Diabetes Mother Hypertension Stroke Thyroid disease Father Cancer colon Social History Smoking and tobacco status: never smoked Second hand smoke exposure: No Alcohol intake: never Desire information about alcohol rehabilitation?: No Counseling given: No Current occupation: Faculty Administrator/call circuit worker Female Reproductive History Date of last menstrual period: 04/15/22 Spontaneous abortions: No Data Anesthesia Cardiac Studies: No Data to Display
[2022-06-25] MEDS: fentaNYL 50 mcg/mL INJ 2mL IVP (14:10)
--- NOTE | 2022-06-25 15:25 | ANE.PACU2 ---
Inpatient post-anesthesia follow up: Airway intact: Yes Vital signs: Temperature 97.4 F Pulse Rate 68 Respiratory Rate 18 Blood Pressure 112/68 Pulse Oximetry 97 Oxygen Delivery Me thod Room Air Oxygen Flow Rate Fraction of Inspir ed Oxygen Hydration adequate: Yes Nausea and vomiting: No Pain level: 2 Mental status: Baseline
--- NOTE | 2022-06-25 19:24 | PM.OP ---
Operative Report Date of procedure: June 25, 2022 Pre-op diagnosis: Preop Diagnosis abnormal uterine bleeding Post-op diagnosis: abnormal uterine bleeding normal endometrial cavity Post-op findings: uterus sounded to 8 cm normal endometrial cavity moderate endometrial tissue no polyps or fibroids Procedure done: hysteroscopy, curettage of uterus Specimens removed/disposition: endometrial tissue Surgeon: Matt Sanders M.D. Anesthesia: MAC Estimated blood loss: 3 cc Complications: none Brief History: 41 y.o. with abnormal uterine bleeding Procedure: Informed consent signed. Patient taken to the operating room.? Anesthesia induced.? Patient was placed in dorsolithotomy position, prepped and draped for hysteroscopy.? A bivalve speculum was placed in the vagina.? The anterior lip of the cervix was grasped with a sharp-toothed tenaculum.? The cervix was serially dilated with Hegar dilators.? .? A hysteroscope was placed into the endometrial cavity.? The endometrial cavity was seen to be normal.? There were no polyps or fibroids.? There was moderate endometrial tissue.? The hysteroscope was then removed.? Endometrial curettage was done with a sharp curette.? Endometrial tissue was sent to pathology. ? The sharp-toothed tenaculum was removed.? There was no bleeding from the endometrial cavity or cervix.? The patient was then placed supine and awakened and taken to the PACU. Postop condition:? stable EBL:? none Sponge and instruments counts were normal x 2 Complications:? none
== END 2022-06-25 15:24 | disposition home or self-care (01) ==
PROVIDERS: Anesthesiology; PCP Nurse Practitioner; Visit Provider Obstetrics & Gynecology
PROC: 0UDB8ZZ Extraction of Endometrium, Via Natural or Artificial Opening Endoscopic (ICD-10-PCS; CPT 58558; principal; 2022-06-25 13:35)
DX: N93.9 Abnormal uterine and vaginal bleeding, unspecified (principal); G47.30 Sleep apnea, unspecified; Z86.718 Personal history of other venous thrombosis and embolism; K21.9 Gastro-esophageal reflux disease without esophagitis; E11.9 Type 2 diabetes mellitus without complications; E66.01 Morbid (severe) obesity due to excess calories; Z68.35 Body mass index [BMI] 35.0-35.9, adult; E03.9 Hypothyroidism, unspecified; F41.9 Anxiety disorder, unspecified; F32.A Depression, unspecified
CPT/HCPCS: 58558; 81025; 84703; 88305; J1100; J1885; J2250; J2405; J2704; J3010; J7030

== ENCOUNTER → 2022-11-23 16:14 | Outpatient (BNVA) | payer MEDICARE, SELFPAY | PROVIDERS: PCP Nurse Practitioner; Visit Provider Nurse Practitioner | DX: M79.641 Pain in right hand (principal); F41.9 Anxiety disorder, unspecified; F32.9 Major depressive disorder, single episode, unspecified | CPT/HCPCS: 73130 ==

== ENCOUNTER → 2023-03-30 10:15 | Outpatient (BNVA) | payer MEDICARE, SELFPAY | PROVIDERS: PCP Nurse Practitioner; Visit Provider Nurse Practitioner Family | DX: E78.2 Mixed hyperlipidemia (principal); E03.9 Hypothyroidism, unspecified; E66.9 Obesity, unspecified; G47.33 Obstructive sleep apnea (adult) (pediatric); L68.0 Hirsutism; R73.9 Hyperglycemia, unspecified; Z13.6 Encounter for screening for cardiovascular disorders; Z98.890 Other specified postprocedural states; Z87.81 Personal history of (healed) traumatic fracture; E66.01 Morbid (severe) obesity due to excess calories; M35.9 Systemic involvement of connective tissue, unspecified | CPT/HCPCS: 80053; 80061; 83036; 84146; 84403; 84439; 84443; 84481; 85025; 86038 ==

== ENCOUNTER 2023-04-09 06:00 | Outpatient (RCR) | payer MEDICARE, SELFPAY | END 2023-04-29 23:59 | disposition home or self-care (01) | LOC: SOT 06:00 | PROVIDERS: Visit Provider Nurse Practitioner Family | DX: Z47.89 Encounter for other orthopedic aftercare (principal) | CPT/HCPCS: 97022; 97110; 97166; 97530 ==

== ENCOUNTER 2023-04-30 06:00 | Outpatient (RCR) | payer MEDICARE, SELFPAY | END 2023-05-30 23:59 | disposition home or self-care (01) | LOC: SOT 06:00 | PROVIDERS: Visit Provider Nurse Practitioner Family | DX: S62.612D Displaced fracture of proximal phalanx of right middle finger, subsequent encounter for fracture with routine healing (principal); X58.XXXD Exposure to other specified factors, subsequent encounter | CPT/HCPCS: 97022; 97110; 97140; 97530 ==

== ENCOUNTER → 2023-05-24 09:42 | Outpatient (BNVA) | payer MEDICARE, SELFPAY | PROVIDERS: PCP Nurse Practitioner Family; Visit Provider Internal Medicine | DX: E07.9 Disorder of thyroid, unspecified (principal); E03.9 Hypothyroidism, unspecified; E55.9 Vitamin D deficiency, unspecified; E28.2 Polycystic ovarian syndrome; L68.0 Hirsutism; Z79.890 Hormone replacement therapy; Z79.84 Long term (current) use of oral hypoglycemic drugs | CPT/HCPCS: 99204 ==

== ENCOUNTER → 2023-08-04 10:32 | Outpatient (BNVA) | payer MEDICARE, SELFPAY | PROVIDERS: PCP Nurse Practitioner Family; Visit Provider Internal Medicine | DX: E07.9 Disorder of thyroid, unspecified (principal); E03.9 Hypothyroidism, unspecified; E55.9 Vitamin D deficiency, unspecified; Z79.899 Other long term (current) drug therapy | CPT/HCPCS: 82306; 84439; 84443; 86376 ==

== ENCOUNTER → 2023-08-09 09:31 | Outpatient (BNVA) | payer MEDICARE, SELFPAY | PROVIDERS: PCP Nurse Practitioner Family; Visit Provider Internal Medicine | DX: E03.9 Hypothyroidism, unspecified (principal); E07.9 Disorder of thyroid, unspecified; E28.2 Polycystic ovarian syndrome; L68.0 Hirsutism; Z79.890 Hormone replacement therapy | CPT/HCPCS: 99214 ==

== ENCOUNTER → 2023-12-22 15:32 | Outpatient (BNVA) | payer MEDICARE, SELFPAY | PROVIDERS: PCP Nurse Practitioner Family; Visit Provider Nurse Practitioner Family | DX: Z13.6 Encounter for screening for cardiovascular disorders (principal); E11.9 Type 2 diabetes mellitus without complications; E78.2 Mixed hyperlipidemia; E55.9 Vitamin D deficiency, unspecified; E03.9 Hypothyroidism, unspecified; G47.30 Sleep apnea, unspecified | CPT/HCPCS: 80053; 80061; 81003; 82306; 83036; 84443; 85025 ==

== ENCOUNTER → 2024-08-14 10:28 | Outpatient (BNVA) | payer MEDICARE, SELFPAY | PROVIDERS: PCP Nurse Practitioner Family; Visit Provider Nurse Practitioner Family | DX: F41.8 Other specified anxiety disorders (principal); E78.2 Mixed hyperlipidemia; E55.9 Vitamin D deficiency, unspecified; G47.30 Sleep apnea, unspecified; E03.9 Hypothyroidism, unspecified; E11.9 Type 2 diabetes mellitus without complications; M35.9 Systemic involvement of connective tissue, unspecified; Z51.81 Encounter for therapeutic drug level monitoring | CPT/HCPCS: 80053; 80061; 81003; 83036; 84439; 84443; 84481; 85007; 85027; 85651; 86140; 86160; 86618; 86666; 86668; 86757 ==